=== PATIENT | female | born 1950 | race Caucasian/White ===

== ENCOUNTER 2016-10-25 20:54 | Emergency (ER) | payer BC ==
[~2016-10-25 20:54] MED LIST: OMEPRAZOLE40 MG PO; VOLTAREN75 MG PO
== END 2016-10-25 22:00 | disposition home or self-care (01) ==
LOC: SED 20:54
DX: R04.0 Epistaxis (principal); R03.0 Elevated blood-pressure reading, without diagnosis of hypertension; K21.9 Gastro-esophageal reflux disease without esophagitis
CPT/HCPCS: 30901; 99283